=== PATIENT | male | born 1980 ===

== ENCOUNTER 2024-06-14 05:23 | Day surgery (SDC) | payer OTHER ==
[2024-06-14] MEDS ORDERED: fentaNYL CITRATE 50 MCG/ML AMPUL IV PUSH ONE (09:15)
[2024-06-14] MEDS ORDERED: MIDAZOLAM HCL 2 MG/2 ML VIAL IV ONE (09:15)
[2024-06-14] MEDS ORDERED: DIPHENHYDRAMINE HCL 50 MG/ML VIAL 1ML IV ONE ×2 (09:15)
== END 2024-06-14 10:32 | disposition home or self-care (01) ==
LOC: AMB-ENDOS 05:23
PROVIDERS: ATTEND Colon & Rectal Surgery
DX: K62.5 Hemorrhage of anus and rectum (principal); K62.89 Other specified diseases of anus and rectum; K60.2 Anal fissure, unspecified; Z91.013 Allergy to seafood